=== PATIENT | female | born 1945 | race Caucasian/White ===

== ENCOUNTER 2017-07-31 10:30 | Outpatient (RCR) | payer MEDICARE, OTHER, SELFPAY ==
--- NOTE | 2017-06-19 11:47 | HP.PTEVAL_ITS ---
Patient's Visit Information CRYSTAL PALMER is a 72 year old F referred to Physical Therapy by FATMATA MAYS with a diagnosis of R knee OA, s/p medial uni.. Date of Evaluation: 06/19/17 Physical Therapist: Cruz Paul DPT, OC - Visit Plan Frequency: 3x /Week Duration: 4-6 Weeks Plan: 3x/week for 3-6 for. patellar mobs. R knee ROM. Gait progression. LE strength and progression. - Subjective Subjective: R partial medial KA two days ago. 06/17/17. Haven't slept good and is nauseous from hydrocodone. also on Zofran. Had R knee pain needing synvisc for a couple years. Pain was 9/10 after 2 aisles at [facility] and it started give out. Current pain is 8/10, not bad until anaesthesia wore off yesterday. Using ice at home. HEP: QS but hard to bend knee. SLR on a roll. 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 Dresses self with help from with FRANC hose and socks and shoes. Washes self and goes bathroom herself with increased time. Enjoys riding bikes and walking but could not due to knee pain. Enjoys reading and crocheting and gardening and mows on rider. Has steps with railing and has done them with L knee. - Pain R anterior medial knee Pain Intensity (Out of 10): 8 Pain Intensity Range: 0, 8 - Objective Pt ambulates slowly with diminished R knee flexion with wh walker safely. Transfers with UE I. R knee has incision medially and dry appropriately dressed. AROM R knee -3 to 80 AROM, limited by discomfort, passively and seated chair scoot to 85. Hip and ankle WFL and 4/5 strength B. Sensation WNL to gross light touch LE. HS and gastroc mod tightness, quad NT. patella R feels very stiff. 4 degree ext lag with SLR. - Goals Goal 1:: Sleep comfortably without waking 6 hours Goal Time Frame: 4-6 Weeks Goal 2:: 0-120 aROM to improve function and dressing Goal Time Frame: 4-6 Weeks Goal 3:: Walk without AD community without deviations Goal Time Frame: 4-6 Weeks Goal 4:: Steps reciprocal with one rail Goal Time Frame: 4-6 Weeks Goal 5:: I approp HEP Goal Time Frame: 4-6 Weeks - Rehabilitation Potential Physical Therapy Diagnosis: R partial knee rplaacement 06/17 Rehabilitation Potential: Fair - Anticipated Interventions Patient/Client Instruction: Educate patient on: Condition For the Purpose of:: To decrease pain, To improve muscle performance and motor function, To improve gait and locomotor functions Therapeutic Exercise to Include: Strength training, Flexibilty training, Gait and locomotor training, Passive ROM, Active ROM For the Purpose of:: To decrease pain, To increase ROM, To increase oxygenation perfusion, To improve ability to perform ADL's, To improve ability of physical actions for home/community/work/leisure Manual Therapy Techniques to Include: Scar massage, Mobilization, Soft tissue mobilization For the Purpose of:: To decrease pain, To increase ROM Cryotherapy (ice pack, ice massage): Yes For the Purpose of:: To decrease swelling/inflammation Thank you for the opportunity to evaluate your patient. For Medicare and Medicare HMO plans, please review the plan of care and approve it. It will need to be FAXED BACK to us at [phone] for Medicare purposes. Please let me know if there are questions or concerns regarding this plan of care. Physician Signature: Date:
--- NOTE | 2017-07-11 10:56 | HP.PTREVAL_ITS ---
GLORIA KING DEAN It has been my pleasure to treat CRYSTAL PALMER over the last 8 visits for R Partial TKR - 06/17/17. Please see the progress note below for an update on the physical therapy plan of care! Subjective: Went shopping [employer] yesterday and was tired and iced when got home. 4/10 ache afterward. Otherwise comfy at rest. Sleep is OK. Motion getting better. Doing HEP with bands of hips and HSC, PKF, HS in chair. Objective/Function: 0-98 aROM , patella sligthly stiff R vs L. Strength at 4/5 R knee flexiona dn extension without pain. Gait is sligth R antalgia/stiffness , steps are reciprocal ascending and weak on R apparent. Hurts R to step down onto L(ROM). OVERALL PROGRESSING NICELY AND APPROPRIATE FOR 2-3 MORE WEEKS TO INCREASE rom FOR STEPS AND STRENGTH FOR GAIT. Plan Plan: 2-3x/week for 3 weeks for. patellar mobs and ensure R knee flexion improving. Progress strength to HEP. Steps. Goals Goal 1:: Sleep comfortably without waking 6 hours Goal Time Frame: 4-6 Weeks Goal Progress: Goal Met Goal 2:: 0-120 aROM to improve function and dressing Goal Time Frame: 4-6 Weeks Goal Progress: Progressing Goal 3:: Walk without AD community without deviations Goal Time Frame: 4-6 Weeks Goal Progress: Progressing Goal 4:: Steps reciprocal with one rail Goal Time Frame: 4-6 Weeks Goal Progress: Progressing Goal 5:: I approp HEP Goal Time Frame: 4-6 Weeks Goal Progress: Progressing Anticipated Interventions Patient/Client Instruction: Educate patient on: Condition For the Purpose of:: To decrease pain, To improve muscle performance and motor function, To improve gait and locomotor functions Therapeutic Exercise to Include: Strength training, Flexibilty training, Gait and locomotor training, Passive ROM, Active ROM For the Purpose of:: To decrease pain, To increase ROM, To increase oxygenation perfusion, To improve ability to perform ADL's, To improve ability of physical actions for home/community/work/leisure Manual Therapy Techniques to Include: Scar massage, Mobilization, Soft tissue mobilization For the Purpose of:: To decrease pain, To increase ROM Cryotherapy (ice pack, ice massage): Yes For the Purpose of:: To decrease swelling/inflammation Please do not hesitate to contact me at [phone] by phone or Fax: if you have questions or concerns regarding this new plan of care! Sincerely, Cruz Paul DPT, OC
--- NOTE | 2017-07-31 10:56 | HP.PTREVAL_ITS ---
FATMATA CASTRO, It has been my pleasure to treat CRYSTAL PALMER over the last 15 visits for R Partial TKR - 06/17/17. Please see the progress note below for an update on the physical therapy plan of care! Subjective: Hurts all the time medial R knee worse in morning. Still on hyrdocodone adn tramadol 2 per day. Pain 5/10 in am until moves 3/10 then. NO pain at rest currently. Tried not taking them last week and pain was worse. Sleep is good. Steps are good going up but needs rail to come down. Normal activities including driving, can't get down on floors and mop which doctor told her not too. Hobbies include riding bikes and can't even do stationary nike yet. walked the other night 1/2 mile and felt OK. Still feels weak overall. Objective/Function: 0-104 AROM but with OP can get to 111 easily, pt not pushing herself very far with flexion. Steps reciprocal today without a rail, slight pain descending with R. Walks well without deviations or pain today. Cues needed for bike set up for full revolutions but excited that she could do it. OVERFALL DOING GREAT. PAIN IS A LITTLE HIGHER THAN I WOULD LIKE IT WELL MEDS BUT SHE WILL DISCUSS THAT WITH DOCTOR. Plan Plan: WILL CONTINUE VIA HEP AND F/U IN TWO WEEKS UNLESS DOCTOR SAYS OTHERWISE. Check ROM, LEFS, bike, steps in two weeks and likely D/C Goals Goal 1:: Sleep comfortably without waking 6 hours Goal Time Frame: 4-6 Weeks Goal Progress: Goal Met Goal 2:: 0-120 aROM to improve function and dressing Goal Time Frame: 4-6 Weeks Goal Progress: Progressing Goal 3:: Walk without AD community without deviations Goal Time Frame: 4-6 Weeks Goal Progress: Goal Met Goal 4:: Steps reciprocal with one rail Goal Time Frame: 4-6 Weeks Goal Progress: Goal Met Goal 5:: I approp HEP Goal Time Frame: 4-6 Weeks Goal Progress: Goal Met Goal 6:: stationary bike at home and continue progress confidently Goal Time Frame: 2 Weeks Goal Progress: NEW GOAL Anticipated Interventions Patient/Client Instruction: Educate patient on: Condition For the Purpose of:: To decrease pain, To improve muscle performance and motor function, To improve gait and locomotor functions Therapeutic Exercise to Include: Strength training, Flexibilty training, Gait and locomotor training, Passive ROM, Active ROM For the Purpose of:: To decrease pain, To increase ROM, To increase oxygenation perfusion, To improve ability to perform ADL's, To improve ability of physical actions for home/community/work/leisure Manual Therapy Techniques to Include: Scar massage, Mobilization, Soft tissue mobilization For the Purpose of:: To decrease pain, To increase ROM Cryotherapy (ice pack, ice massage): Yes For the Purpose of:: To decrease swelling/inflammation Please do not hesitate to contact me at [phone] by phone or Fax: if you have questions or concerns regarding this new plan of care! Sincerely, Cruz Paul, AIDET, OC
--- NOTE | 2017-09-29 15:26 | HP.PT.NRP ---
HP - Discharge Summary (1) - Patient Information CRYSTAL PALMER was seen in my office for initial evaluation on 06/19/17. The following Plan of Care was established for this patient: Initial Frequency: 3x /Week Initial Duration: 4-6 Weeks - Anticipated Interventions Patient/Client Instruction: Educate patient on: Condition For the Purpose of:: To decrease pain, To improve muscle performance and motor function, To improve gait and locomotor functions Therapeutic Exercise to Include: Strength training, Flexibilty training, Gait and locomotor training, Passive ROM, Active ROM For the Purpose of:: To decrease pain, To increase ROM, To increase oxygenation perfusion, To improve ability to perform ADL's, To improve ability of physical actions for home/community/work/leisure Manual Therapy Techniques to Include: Scar massage, Mobilization, Soft tissue mobilization For the Purpose of:: To decrease pain, To increase ROM Cryotherapy (ice pack, ice massage): Yes For the Purpose of:: To decrease swelling/inflammation This patient was last seen in our office 07/31/17. Pertinent comments regarding their Physical therapy will appear below: Pt seen 15 visits of her plans of care. She cancelled her last visit and neglected to reschedule. at this point, it has been nearly two months and I will discontinue her due to nonattendance. At this point I will be discontinuing this patient from physical therapy. I would be happy to see this patient again in the future if found appropriate by the physician. Thank you! Cruz Paul, DPT, OC
== END 2017-07-31 19:00 | disposition home or self-care (01) ==
LOC: PT 10:30
DX: Z96.651 Presence of right artificial knee joint (principal)
CPT/HCPCS: 97110; 97116; 97140; 97162; 97530

== ENCOUNTER → 2017-10-14 20:00 | Outpatient (CLI) | payer MEDICARE, OTHER, SELFPAY | PROVIDERS: Family Provider Family Medicine; PCP Family Medicine; Visit Provider Psychiatry & Neurology Neurology | DX: G47.33 Obstructive sleep apnea (adult) (pediatric) (principal) | CPT/HCPCS: 95811 ==

== ENCOUNTER 2019-02-24 12:30 | Outpatient (RCR) | payer MEDICARE, OTHER, SELFPAY ==
--- NOTE | 2019-01-01 12:29 | HP.PTEVAL ---
Patient's Visit Information CRYSTAL PALMER is a 73 year old F referred to Physical Therapy by FATMATA CASTRO with a diagnosis of S/P LEFT PARTIAL KNEE REPLACEMENT 12/29/18. Date of Evaluation: 01/01/19 Physical Therapist: Annmarie Mathis, PT, Cert MDT - Visit Plan Frequency: 3x /Week Duration: 4-6 Weeks Plan: LEFT KNEE REHAB PER TKR PROTOCOL TO HELP MEET THE SET GOALS. PATIENT IS AGREEABLE. - Subjective Findings: Work/Leisure: RETIRED. Disability: NO. Present symptoms: LEFT KNEE PAIN. Present since: CHRONIC. Pain Scale: WORST 22/10, LEAST 5/10. Currently: 10/14. Commenced as a result of: ARTHRITIS. Symptoms at onset: LEFT KNEE PAIN. Worse: TRYING TO BEND IT, TOO MUCH WALKING, TOO MUCH STANDING. Better: LYING DOWN, SITTING AND ICE. Disturbed sleep: YES. Previous history/Previous treatment: INJECTIONS. Gait: USING FWW AT ALL TIMES. TIME AND DISTANCE LIMITED. TRYING TO GET UP AND WALK EVERY HOUR. Difficulty initiating urinatin: NO. Accidents: NO. Unexplained weight loss: NO. Imaging: PATIENT DOESN'T REMEMBER. PMH: BACK SURGERY FOR PATRICIA AND SCREW PLACEMENT IN LOW BACK 2016 - FUSION, HTN, HYPOTHYROIDISM, HIGH CHOLESTEROL, GABAPENTIN FOR RLS, SLEEP APNEA. RTKR JUNE 2017 - Objective Sitting/Standing Posture: POOR. Lordosis: REDUCED. Active Correction of posture: NE. Other Observations: INDEP GAIT INTO PT WITH FWW WITH RECIPRICAL PATTERN BUT MILD LIMP ON LLE. GOOD BALANCE WITH WALKER. DECREASED CADANCE. MILD INCREASED TRUNK FLEXION. Motor deficit: RIGHT LE STRENGTH IS 4-5/5 WITH MMT'ING. LLE: HIP 3+/5, KNEE EXT 2/5, KNEE FLEX 2/5, ANKLE 5/5. Sensory deficit: CHASIDY LE LIGHT TOUCH SENSATION IS INTACT AND SYMMETRICAL. PATIENT EVEN DENIES DECREASED LIGHT TOUCH AROUND LEFT KNEE INCISION. ROM deficit: IN SUPINE WITH A HEEL SLIDE: RIGHT KNEE FULL EXT TO 120 DEG FLEX. LEFT KNEE -27 DEG EXTENSION TO 50 DEG FLEX (54 DEG FLEX AFTER HEP REVIEW). Reflexes: NT. Core strength: POOR. Palpation: ABLE TO SEE SMALL INCISION BANDAGE THROUGH FRANC HOSE AND IT HAS JUST A SMALL DOT OF DRAINAGE ON IT. 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 THERE IS MODERATE EDEMA LOCALIZED TO THE LEFT KNEE. - Goals Goal 1:: INDEP AND SAFE GAIT WITH LEAST ASSISTIVE DEVICE Goal Time Frame: 4-6 Weeks Goal 2:: INCRASE FUNCTIONAL ROM OF LLE TO EASE ADL'S Goal Time Frame: 4-6 Weeks Goal 3:: INCRASE FUNCTIONAL STRENGTH OF LLE TO EASE ADL'S Goal Time Frame: 4-6 Weeks Goal 4:: INDEP HEP FOR CONTINUED IMPROVEMENT ONCE FORMAL PHYSICAL THERPAY CONCLUDES. Goal Time Frame: 4-6 Weeks - Rehabilitation Potential Rehabilitation Potential: Fair - Anticipated Interventions Patient/Client Instruction: Educate patient on: Condition, Plan of Care, Risk Factors, Benefits of Fitness Program For the Purpose of:: To improve self management Therapeutic Exercise to Include: Strength training, Balance training, Flexibilty training, Gait and locomotor training, Active ROM, Dynamic Lumbar Stabilization For the Purpose of:: To decrease pain, To increase ROM, To improve muscle performance and motor function, To improve performance and independence with ADL's, To improve ability of physical actions for home/community/work/leisure, To improve gait and locomotor functions Cryotherapy (ice pack, ice massage): Yes Thermo therapy (hot pack): Yes For the Purpose of:: To decrease pain, To decrease swelling/inflammation, To increase ROM Thank you for the opportunity to evaluate your patient. For Medicare and Medicare HMO plans, please review the plan of care and approve it. It will need to be FAXED BACK to us at [phone] for Medicare purposes. For Medicare only, by signing this I certify the plan of care. Please let me know if there are questions or concerns regarding this plan of care. Physician Signature: Date:
--- NOTE | 2019-01-22 11:09 | HP.PTREVAL ---
FATMATA CASTRO, It has been my pleasure to treat CRYSTAL PALMER over the last 8 visits for S/P LEFT PARTIAL KNEE REPLACEMENT 12/29/18. Please see the progress note below for an update on the physical therapy plan of care! Subjective: PATIENT ARRIVED FEELING NAUSEATED. DENIES PROBLEMS WITH HER INCISION. PATIENT REPORTS HER KNEE IS A LITTLE MORE SORE TODAY BECAUSE SHE CLEANED THE HOUSE FOR THE FIRST TIME. NO LONGER USING WALKER. USUALLY WALKS WITHOUT ANY AD BUT USING CANE TODAY FOR DISTANCE. PATIENT REPORTS SHE IS ALMOST BACK TO NORMAL EXCEPT FOR NOT BEING ABLE TO BEND IT MORE. STATES SHE IS COOKING, CLEANING, AND DOING LAUNDRY. ALBE TO GET HER SHOES ON BY HERSELF TODAY. FOLLOW UP PENDING WITH SURGEON 02/08/19. PATIENT REPORTS SHE ONLY TAKES PAIN PILLS BEFORE PT SESSIONS NOW. NO BACK SPASMS TODAY. REQUESTING NOT TO DO MUCH TODAY BECAUSE FEELING SICK. Objective/Function: PATIENT IS MAKIING GOOD PROGRESS TOWARD ALL PT GOALS BUT LEFT KNEE FLEXION ROM IS IMPROVING VERY SLOWLY. UPON EXAM TODAY: INDEP GAIT INTO PT WITH STRAIGHT CANE AND MILD LIMP ON LLE. GOOD BALANCE WITH AND WITHOUT CANE. DECREASED CADANCE. MILD INCREASED TRUNK FLEXION. Motor deficit: RIGHT LE STRENGTH IS 4-5/5 WITH MMT'ING. LLE: HIP 4-/5, KNEE EXT 3-/5, KNEE FLEX 2/5, ANKLE 5/5. Sensory deficit: CHASIDY LE LIGHT TOUCH SENSATION IS INTACT AND SYMMETRICAL. ROM deficit: IN SUPINE WITH A HEEL SLIDE: LEFT KNEE -2 DEG EXTENSION TO 75 DEG FLEX. LEFT KNEE PASSIVE FLEXION ROM SITTING EOB TO 90 DEG TODAY. Core strength: POOR. 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 THERE IS MODERATE EDEMA LOCALIZED TO THE LEFT KNEE. INCISION LOOKS GOOD TODAY WITHOUT ANY SIGNS OF INFECTION. Plan Plan: CONT PT 3 TIMES A WEEK X 3 WEEKS FOR LEFT KNEE REHAB PER TKR PTOTOCOL WITH FOCUS ON INCREASING LEFT KNEE FLEXION ROM AND STRENGTH. Goals Goal 1:: INDEP AND SAFE GAIT WITH LEAST ASSISTIVE DEVICE Goal Time Frame: 4-6 Weeks Goal 2:: INCRASE FUNCTIONAL ROM OF LLE TO EASE ADL'S Goal Time Frame: 4-6 Weeks Goal 3:: INCRASE FUNCTIONAL STRENGTH OF LLE TO EASE ADL'S Goal Time Frame: 4-6 Weeks Goal 4:: INDEP HEP FOR CONTINUED IMPROVEMENT ONCE FORMAL PHYSICAL THERPAY CONCLUDES. Goal Time Frame: 4-6 Weeks Anticipated Interventions Patient/Client Instruction: Educate patient on: Condition, Plan of Care, Risk Factors, Benefits of Fitness Program For the Purpose of:: To improve self management Therapeutic Exercise to Include: Strength training, Balance training, Flexibilty training, Gait and locomotor training, Active ROM, Dynamic Lumbar Stabilization For the Purpose of:: To decrease pain, To increase ROM, To improve muscle performance and motor function, To improve performance and independence with ADL's, To improve ability of physical actions for home/community/work/leisure, To improve gait and locomotor functions Cryotherapy (ice pack, ice massage): Yes Thermo therapy (hot pack): Yes For the Purpose of:: To decrease pain, To decrease swelling/inflammation, To increase ROM Please do not hesitate to contact me at [phone] by phone or if you have questions or concerns regarding this new plan of care! Sincerely, Annmarie Mathis, PT, Cert MDT
--- NOTE | 2019-02-24 13:49 | HP.PTDCSUM ---
HP - PT D/C Summary It has been my pleasure to treat CRYSTAL PALMER under orders from FATMATA CASTRO, for the diagnosis of S/P LEFT PARTIAL KNEE REPLACEMENT 12/29/18 for a total of 15 visit(s). Discharge Date: Please see the following information for a summary of their discharge status. - Subjective Subjective: PATIENT REPORTS THAT HER SURGEON DOES NOT RECOMMEND MANIPULATION OF HER KNEE AT THIS POINT. SHE STATES SHE CAN DO EVERYTHING SHE NEEDS TO DO (DRIVE, COOK, CLEAN, DRESS HERSELF) WITH HER KNEE THE WAY IT IS RIGHT NOW. SHE REPORTS THE SURGEON FEELS THAT SHE COULD IMPROVE OVER THE NEXT 6 MONTHS TO YEAR. PATIENT REPORTS SHE HASN'T HAD TO TAKE A PAIN PILL FOR ABOUT 2 WEEKS. INTERMITTENT LEFT KNEE ZAPS IN SITTING. PATIENT REPORTS THE ONLY PROBLEM SHE IS HAVING IS BENDING IT. SHE REPORTS THAT SHE THINKS SHE HAS PROBABLY BEEN UP ON IT TOO MUCH WITH COOKING, CLEANING AND SHOPPING AND NOT STRETCHING ENOUGH. SHE IS HOPEFUL THAT SHE WILL BE ABLE TO FOCUS ON REHAB MORE IN [place]. - Pain LEFT KNEE Pain Intensity (Out of 10): 4 L hip and LB Pain Intensity (Out of 10): 0 - Overall Improvement % Improvement: 95 - Objective Objective/Function: THIS PATIENT DEMONSTRATES INDEP AND SAFE GAIT INTO PT TODAY WITHOUT AD BUT DECREASED CADANCE AND LIMP ON LLE. HER LEFT KNEE EXT ROM IS GOOD. HER LLE STRENGTH IS IMPROVING BUT HER LEFT KNEE FLEXION IS NOT. SURGEON IS AWARE. PATIENT IS INDEP WITH POOL AND LAND HOME EX PROGRAMS AND PLANS TO CONTINUE REHAB IN [place] AT THIS POINT. UPON EXAM TODAY: Motor deficit: RIGHT LE STRENGTH IS 5/5 WITH MMT'ING. LLE: HIP 4/5, KNEE EXT 4-/5, KNEE FLEX 3-/5, ANKLE 5/5. Sensory deficit: CHASIDY LE LIGHT TOUCH SENSATION IS INTACT AND SYMMETRICAL. ROM deficit: IN SUPINE WITH A HEEL SLIDE: LEFT KNEE FULL EXTENSION TO 86 DEG FLEX. LEFT KNEE PASSIVE FLEXION ROM SITTING EOB TO 86 DEG FLEX WELL TODAY. FURTHER PROM IS PAIN LIMITED. OTHER: THERE IS MODERATE EDEMA LOCALIZED TO THE LEFT KNEE. LEFS SCORE HAS IMPROVED FROM 15 TO 53 DURING THIS EPISODE OF CARE. - Goals Goal 1:: INDEP AND SAFE GAIT WITH LEAST ASSISTIVE DEVICE Goal Progress: Goal Met Goal 2:: INCRASE FUNCTIONAL ROM OF LLE TO EASE ADL'S Goal Progress: Not Progressing Goal 3:: INCRASE FUNCTIONAL STRENGTH OF LLE TO EASE ADL'S Goal Progress: Progressing Goal 4:: INDEP HEP FOR CONTINUED IMPROVEMENT ONCE FORMAL PHYSICAL THERPAY CONCLUDES. Goal Progress: Not Progressing - Plan Plan: D/C. PATIENT IS LEAVING FOR [place] AND HAS AN ORDER TO CONTINUE REHAB THERE. - D/C Information If there are questions or concerns regarding this patient's physical therapy, please feel free to call me at [phone]. Thank you for the referral of this patient. Sincerely, Annmarie Mathis, PT, Cert MDT
== END 2019-02-24 19:00 | disposition home or self-care (01) ==
LOC: PT 12:30
PROVIDERS: Family Provider Family Medicine; PCP Family Medicine
DX: M17.12 Unilateral primary osteoarthritis, left knee (principal)
CPT/HCPCS: 97110; 97140; 97162; 97530

== ENCOUNTER 2021-11-02 09:00 | Outpatient (RCR) | payer MEDICARE, OTHER, SELFPAY ==
--- NOTE | 2021-09-26 09:04 | HP.PTEVAL_ITS ---
Patient's Visit Information CRYSTAL PALMER is a 76 year old F referred to Physical Therapy by FATMATA CASTRO with a diagnosis of L HIP PAIN AND TROCHANTERIC BURSITIS. Date of Evaluation: 09/26/21 Physical Therapist: Annmarie Mathis, PT, Cert MDT - Visit Plan Frequency: 2-3x /Week Duration: 4-6 Weeks Plan: L HIP US X 6-8 OVER GREATER TROCH REGION. POSTURE CORRECTION/STRENGTHENING, INSTRUCTION IN APPROPRIATE BODY MECHANICS AND ACTIVITY MODIFICATIONS. DLS STARTING WITH A NEUTRAL SPINE PROGRESSING ROM TOLERATED. CHASIDY LE ROM, STRETCHING AND STRENGTHENING IN PAINFREE ROM AND INTENSITY. HEP INSTRUCTION. - Subjective Work/Leisure: RETIRED. RIDES [employer]. Present symptoms: CENTRAL LBP. LEFT BUTTOCK PAIN SITTING AND LEFT GROIN, THIGH AND LATERAL HIP PAIN WALKING. PATIENT DENIES CHASIDY LE NUMBNESS AND TINGLING. Present since: ABOUT 6 WKS AGO. Pain Scale: WORST 8/10, LEAST 0/10. Currently: 0/10. Commenced as a result of: NO APPARENT REASON. Symptoms at onset: L GROIN. Worse: WALKING, PROLONGED SITTING, SITTING TO WEED. Better: ICE. Disturbed sleep: NO. Previous history/Previous treatment: ABOUT 8 YEARS AGO REC'D A CORTISONE INJECTION FROM DR. RODRIGUEZ IN L HIP BUT THAT WAS A DIFFERENT KIND OF PAIN. Treatment this episode: NONE. Coughing/sneezing/straining: NEGATIVE. Gait: IT FEELS LIKE IT CATCHES AND IT HURTS. IT SLOWS HER DOWN. NO AD. NO FALLS. TIME AND DISTANCE LIMITED DUE TO PAIN. Bowel or Bladder Dysfunction: NO. Accidents: NO. Unexplained weight loss: NO. Imaging: RECENT L HIP X-RAY AT [facility] AND PATIENT REPORTS IT WAS NORMAL. PMH/Recent major surgery: CHASIDY PARTIAL KNEE REPLACEMENTS. LUMBAR FUSION ABOUT [address] RODRIGUEZ[address] R CTR, R FOOT SX. HYPOTHYROIDIM, HTN, RLS. HIGH CHOLESTEROL. FIBROMYALGIA. OTHER: PATIENT REPORTS LAST NIGHT WAS THE WORST IT HAS BEEN. REPORTS SHE HAS TRIED ALEVE BUT IT HASN'T HELPED. REPORTS CORTISONE SHOT WAS DISCUSSED BUT PT RECOMMENDED FIRTST. IT WAS AWFUL LAST NIGHT. - Objective Sitting/Standing Posture: POOR. FH. RS'S. Active Correction of posture: WORSE. Other Observations: SLOW INDEP ANTALGIC GAIT INTO PT WITHOUT ANY AD'S OR LOB. Sensory deficit: CHASIDY LE LIGHT TOUCH SENSATION IS GROSSLY INTACT AND SYMMETRICAL. ROM deficit: CHASIDY LE'S WFL. CHASIDY HIP IR AND ER TESTING DID NOT PROVOKE PAIN. Motor deficit: CHASIDY LE'S 5/5 WITH MMT'ING EXCEPT RIGHT HIP 4/5 AND L HIP 4-/5 AND HIP ABD TESTING PROVOKES PAIN. HIP IR AND ER TESTING SHOWS WEAKNESS BUT DOES NOT PROVOKE PAIN. CLICKING FELT IN L KNEE AND PATIENT REPORTS THAT IS NOT NEW. SHE REPORTS HER LEFT KNEE NEVER GOT GOOD HER RIGHT KNEE AFTER SX'S. Dural Signs: NEGATIVE CHASIDY LE'S. Lumbar mvmt loss: flex - NIL. ext - MOD. R SG -MOD. L SG - MOD. Core strength: POOR. Palpation: TENDERNESS WITH PALPATION IN THE L GREATER TROCH REGION AND ALONG IT BAND TO LATERAL KNEE. TREATMENT: NEUROMUSCULAR REEDUCATION - RETRAINING OF MVMT AND POSTURE FOR SITTING, LYING AND STANDING ACTIVITIES. - Balance/Special Test Scores Lower Extremity Functional Score: 26 TUG Test Time Seconds: 11.36 30 Second Chair Rise Test Seconds: 9 - Goals Goal 1:: DECREASE C/O LOW BACK AND LEFT LE PAIN Goal Time Frame: 4-6 Weeks Goal 2:: IMPROVE STANDING, WALKING, SITTING, BENDING, ADL, HOUSEWORK AND YARDWORK FUNCTION Goal Time Frame: 4-6 Weeks Goal 3:: INSTRUCT IN PROPHYLAXIS Goal Time Frame: 4-6 Weeks - Anticipated Interventions Patient/Client Instruction: Educate patient on: Condition, Plan of Care, Risk Factors For the Purpose of:: To improve self management Therapeutic Exercise to Include: Strength training, Body mechanics, Postural training, Gait and locomotor training, Neuromotor development, In an aquatic setting, Dynamic Lumbar Stabilization Comment: CONSIDER AQUATIC THERAPY IF NOT IMPROVING ON LAND. For the Purpose of:: To decrease pain, To improve muscle performance and motor function, To improve ability to perform ADL's, To increase tolerance to activity/condition/position, To improve ability of physical actions for home/community/work/leisure, To improve gait and locomotor functions Cryotherapy (ice pack, ice massage): Yes Thermo therapy (hot pack): Yes Ultrasound (thermal/non thermal): Yes For the Purpose of:: To decrease pain, To improve nutrient delivery to tissue Thank you for the opportunity to evaluate your patient. For Medicare and Medicare HMO plans, please review the plan of care and approve it. It will need to be FAXED BACK to us at [phone] for Medicare purposes. For Medicare only, by signing this I certify the plan of care. Please let me know if there are questions or concerns regarding this plan of care. Physician Signature: Date:
--- NOTE | 2021-10-22 12:30 | HP.PTREVAL_ITS ---
FATMATA CASTRO, It has been my pleasure to treat CRYSTAL PALMER over the last 9 visits for L HIP PAIN AND TROCHANTERIC BURSITIS. Please see the progress note below for an update on the physical therapy plan of care! Subjective: PATIENT REPORTS SOMETIMES IT IS GOOD AND OTHER TIMES SHE CAN STILL FEEL IT. STATES SHE FEELS THE US HAS REALLY HELPED. DOING HEP ONCE IN THE MORNING AND ONCE AT NIGHT. I CAN SIT IN THE CAR NOW WITHOUT HAVING TO WIGGLE AROUND TO GET PRESSURE OFF MY BUTT. PATIENT REPORTS SHE DOES NOT FEEL SHE NEEDS AN INJECTION AND SHE DOESN'T WANT ONE. Objective/Function: PATIENT WAS SEEN TODAY FOR RE-ASSESSMENT OF PROGRESS TOWARD THE SET PT GOALS AND THE NEED FOR FURTHER PHYSICAL THERAPY VS READINESS FOR DI SCHARGE. PATIENT IS MAKING GREAT PROGESS TOWARD ALL PT GOALS. SHE IS A GOOD CANDIDATE TO CONTINUE THERPAY BASED ON PROGRESS MADE AND ROOM FOR FUTHER IMPROVEMENT. PATIENT IS AGREEABLE. SHE IS BECOMING INDEP WITH A HEP BUT NEEDS TO LEARN/TRY MORE EX'S. UPON EXAM TODAY HER L HIP STRENGTH IS 4+/5 WITH MMT'ING AND NO PAIN WITH TESTING. SHE CONTINUES TO HAVE POOR CORE STRENGTH BUT IS LEARNING TO ACTIVATE HER CORE BETTER. INSTRUCTED IN TWO NEW HOME EX'S TODAY AND WRITTEN INSTRUCTIONS PROVIDED. CHASIDY CLAMS AND REVERSE CLAMS. SHE TOLERATED THESE WELL. Plan Plan: CONT PT PER POC WITH US NEEDED. L HIP US X 6-8 OVER GREATER TROCH REGION. POSTURE CORRECTION/STRENGTHENING, INSTRUCTION IN APPROPRIATE BODY MECHANICS AND ACTIVITY MODIFICATIONS. DLS STARTING WITH A NEUTRAL SPINE PROGRESSING ROM TOLERATED. CHASIDY LE ROM, STRETCHING AND STRENGTHENING IN PAINFREE ROM AND INTENSITY. HEP INSTRUCTION. Balance/Gait/Functional tests - Balance/Special Test Scores Lower Extremity Functional Score: 57 TUG Test Time Seconds: 11.36 Tug Test: <20 sec.=mostly independent 30 Second Chair Rise Test Seconds: 9 Goals Goal 1:: DECREASE C/O LOW BACK AND LEFT LE PAIN Goal Time Frame: 4-6 Weeks Goal Progress: Progressing Goal 2:: IMPROVE STANDING, WALKING, SITTING, BENDING, ADL, HOUSEWORK AND YARDWORK FUNCTION Goal Time Frame: 4-6 Weeks Goal Progress: Progressing Goal 3:: INSTRUCT IN PROPHYLAXIS Goal Time Frame: 4-6 Weeks Goal Progress: Progressing Anticipated Interventions Patient/Client Instruction: Educate patient on: Condition, Plan of Care, Risk Factors For the Purpose of:: To improve self management Therapeutic Exercise to Include: Strength training, Body mechanics, Postural training, Gait and locomotor training, Neuromotor development, In an aquatic setting, Dynamic Lumbar Stabilization Comment: CONSIDER AQUATIC THERAPY IF NOT IMPROVING ON LAND. For the Purpose of:: To decrease pain, To improve muscle performance and motor function, To improve ability to perform ADL's, To increase tolerance to activity/condition/position, To improve ability of physical actions for home/community/work/leisure, To improve gait and locomotor functions Cryotherapy (ice pack, ice massage): Yes Thermo therapy (hot pack): Yes Ultrasound (thermal/non thermal): Yes For the Purpose of:: To decrease pain, To improve nutrient delivery to tissue Please do not hesitate to contact me at [phone] by phone or if you have questions or concerns regarding this new plan of care! Sincerely, Annmarie Mathis, PT, Cert MDT
--- NOTE | 2021-11-02 09:28 | HP.PTDCSUM ---
It has been my pleasure to treat CRYSTAL PALMER referred by FATMATA CASTRO, with the diagnosis of L HIP PAIN AND TROCHANTERIC BURSITIS for a total of 11 visit(s). Discharge Date: Please see the following information for a summary of their discharge status. Subjective: PATIENT REPORTS SHE IS DOING GOOD. NO GROIN PAIN. ACTIVE AND DOING HEP. I EVEN HOPPED WITH MY GRANDKIDS. HAS A FEW QUESTIONS ABOUT NEW EX'S FROM LAST VISIT. LEFT THIGH Pain Intensity (Out of 10): 0 L GROIN Pain Intensity (Out of 10): 3 % Improvement: 95 Objective/Function: PATIENT WAS SEEN TODAY FOR RE-ASSESSMENT OF PROGRESS TOWARD THE SET PT GOALS AND THE NEED FOR FURTHER PHYSICAL THERAPY VS READINESS FOR DISCHARGE. ALL GOALS. MET. PATIENT IS INDEP WITH HEP. REVIEWED NEW BAND EX'S AND ADDED MULTIFIDUS PUSH OUTS CHASIDY TODAY WITH GOOD TOLERANCE AND TECHNIQUE. WRITTEN HEP PROVIDED. PATIENT IS APPROPRIATE FOR DISCHARGE AND AGREEABLE. UPON EXAM TODAY: Motor deficit: CHASIDY LE'S 5/5 WITH MMT'ING. Lumbar mvmt loss: flex - NIL. ext - MOD. R SG -MOD. L SG - MOD. PATIENT DENIES PAIN WITH ALL TESTING TODAY. Goal 1:: DECREASE C/O LOW BACK AND LEFT LE PAIN Goal Progress: Goal Met Goal 2:: IMPROVE STANDING, WALKING, SITTING, BENDING, ADL, HOUSEWORK AND YARDWORK FUNCTION Goal Progress: Goal Met Goal 3:: INSTRUCT IN PROPHYLAXIS Goal Progress: Goal Met Plan: D/C TO HEP. PATIENT AGREEABLE. If there are questions or concerns regarding this patient's physical therapy, please feel free to call me at [phone]. Thank you for the referral of this patient. Sincerely, Annmarie Mathis, PT, Cert MDT Balance/Gait/Functional tests - Balance/Special Test Scores Lower Extremity Functional Score: 70 TUG Test Time Seconds: 9.29 Tug Test: <10 sec.=free mobile 30 Second Chair Rise Test Seconds: 12
== END 2021-11-02 19:00 | disposition home or self-care (01) ==
LOC: PT 09:00
PROVIDERS: PCP Family Medicine
DX: M25.552 Pain in left hip (principal); M70.62 Trochanteric bursitis, left hip
CPT/HCPCS: 97035; 97110; 97112; 97162; 97164; 97530

== ENCOUNTER 2023-07-16 15:00 | Outpatient (RCR) | payer MEDICARE, OTHER, SELFPAY ==
--- NOTE | 2023-06-02 16:05 | HP.PTEVAL ---
Patient's Visit Information Visit Information Visit Information: CRYSTAL PALMER is a 78 year old F referred to Physical Therapy by JUAN LUIS GARCIA with a diagnosis of BICIPITAL TENDINITIS L SHLD. Date of Evaluation: 06/02/23 Physical Therapist: Annmarie Mathis PT, Cert MDT Visit Plan Frequency: 2x /Week Duration: 2-4 Weeks Plan: US AT 1.3 W/CM2 100% X 8 MIN TO L SHLD. MH AND CP NEEDED. L SHLD STRENGTHENING. Subjective Subjective: PATIENT REPORTS HE LEFT JOE HAS BEEN HURTING FOR ABOUT [address] GARCIA OFFERED TO GIVE HER A SHOT BUT IT DOESN'T HURT ALL THE TIME. SOMETIMES WHEN SHE MOVES IT IT POPS. SHE STATES SHE HAD AN X-RAY OF IT BUT NOT AN MRI. SHE STATES HE DOESN'T THINK THERE ARE ANY TEARS. SHE REPORTS A HISTORY OF R SHLD UNREPAIRED RCT TREATED WITH INJECTION AND SHE DOESN'T WANT TO HAVE SURGERY. Pain Scale: Worst - 5/10 - WHEN IT POPS. Least - 0/10 - MOST OF THE TIME Currently: 0/10 Commenced as a result of: TAKING CARE OF ILL FOR ABOUT 2 YEARS. Worse: VACUUMING. JUST MOVING ARM IN SITTING SOMETIMES. CLEANING THE SHOWER. R HAND DOMINANT SO DOESN'T USE THE LUE A LOT. Better: ICE Disturbed sleep: NO Previous history/Previous treatment: UNREMARKABLE This episode: NONE Imaging: L SHLD X-RAY - SUBLUXATION FROM WEAKNESS OF BICEP PER PATIENT DESCRIPTION PMH/Recent major surgery: R ROTATOR CUFF TEAR. NIDDM. CHASIDY TKR'S. LUMBAR SX. HTN. HIGH CHOLESTEROL. HYPOTHYROIDISM. RLS. Objective Objective: Sitting Posture/Standing Posture: POOR. FH. RSH'S. L SHLD LEVEL LOWER THAN RIGHT. ABLE TO PARTIALLY CORRECT POSTURE BUT NOT MAINTAIN. Other Observations: INDEP GAIT AND TRANSFERS. NO AD'S OR LOB. Sensory deficit: CHASIDY UE LIGHT TOUCH SENSATOIN GROSSLY INTACT AND SYMMETRICAL. DENIES NUMBNESS AND TINGLING CHASIDY UE'S. ROM deficit: L SHLD FULL PASSIVE AND ACTIVE ROM WITH MILD ERP INTO FULL L SHLD IR. R SHLD NT AT PATIENT REQUEST STATING SHE IS JUST HERE FOR HER L SHLD AND DOES NOT WANT TREATMENT ON THE R. Motor deficit: R HAND DOMINANT. CHASIDY GRIB 20 LBS. L SHLD FLEX 4-/5, ABD 4-/5, IR 4/5, ER 4-/5, ELBOW FLEX 4/5, EXT 5/5. Cervical Mvmt Loss: Flex: NIL Pro: NIL Ext: MOD Ret: MERISSA RSB: MOD LSB: MOD R Rot: MIN L Rot: MIN PATIENT DENIES ANY INCREASED NECK OR SHLD PAIN WITH CERVICAL ROM TESTING BUT REPORTS NECK STIFFNESS. Postural strength: POOR Palpation: TENDERNESS L ANTERIOR SHLD IN BICIPITAL GROOVE. Balance/Special Test Scores Quick DASH Score: 22.7250 Goals Goal 1:: DECREASE C/O L SHLD CATCHING/POPPING AND PAIN BY AT LEAST 80% Goal Time Frame: 2-4 Weeks Goal 2:: INCREASE L UE STRENGTH BY AT LEAST 1/2 MUSCLE GRADE OF ALL INVOLVED MUSCULATURE Goal Time Frame: 2-4 Weeks Goal 3:: IMPROVE QUICK DASH SCORE BY AT LEAST 5 POINTS Goal Time Frame: 2-4 Weeks Goal 4:: INDEP HEP Goal Time Frame: 2-4 Weeks Rehabilitation Potential Physical Therapy Diagnosis: TENDERNESS L BICIPITAL TENDON IN BICIPITAL GROOVE. L SHLD AND ELBOW WEAKNESS. Rehabilitation Potential: Good Anticipated Interventions Patient/Client Instruction: Educate patient on: Condition, Plan of Care and Risk Factors For the Purpose of:: To improve self management Therapeutic Exercise to Include: Strength training, Postural training, Neuromotor development, Passive ROM, Active ROM and Scapular Strength/Stabilization For the Purpose of:: To decrease pain, To increase ROM, To improve nutrient delivery to tissue, To improve muscle performance and motor function, To increase tolerance to activity/condition/position and To improve ability of physical actions for home/community/work/leisure Manual Therapy Techniques to Include: Mobilization For the Purpose of:: To decrease pain and To improve nutrient delivery to tissue Cryotherapy (ice pack, ice massage): Yes Thermo therapy (hot pack): Yes Ultrasound (thermal/non thermal): Yes For the Purpose of:: To decrease pain, To decrease swelling/inflammation and To improve nutrient delivery to tissue Text: Thank you for the opportunity to evaluate your patient. For Medicare and Medicare HMO plans, please review the plan of care and approve it. It will need to be FAXED BACK to us at [phone] for Medicare purposes. For Medicare only, by signing this I certify the plan of care. Please let me know if there are questions or concerns regarding this plan of care. Physician Signature: Date:
--- NOTE | 2023-06-27 12:25 | HP.PTREVAL_ITS ---
Re-Evaluation Intro: JUAN LUIS GARCIA, It has been my pleasure to treat CRYSTAL PALMER over the last 7 visits for BICIPITAL TENDINITIS L SHLD. Please see the progress note below for an update on the physical therapy plan of care! Subjective Subjective: PATIENT REPORTS SHE CAN MOVE HER ARM AROUND WITH ALMOST NO PAIN NOW. STATES SHE IS ALMOST BACK TO HER NORMAL ACTIVITY LEVEL TOO. IT FEELS SO MUCH BETTER AFTER THE US TREATMENTS. Objective Objective/Function: PATIENT WAS SEEN TODAY FOR RE-ASSESSMENT OF PROGRESS TOWARD THE SET PT GOALS AND THE NEED FOR FURTHER PHYSICAL THERAPY VS READINESS FOR DISCHARGE. THIS PATIENT IS MAKING GOOD PROGRESS WITH PT AND IS A GOOD CANDIDATE TO CONTINUE BASED ON PROGRESS MADE AND ROOM FOR FURTHER IMPROVEMENT. SHE WOULD LIKE TO SEE IF SHE CAN GET RID OF THE REST OF THE PAIN AND GET STRONGER. UPON EXAM TODAY SHE STILL HAS WEAKNESS IN L SHLD FLEX, ABD AND ER BUT HER ELBOW FLEXION AND SHLD IR IS 5/5 NOW. Motor deficit: R HAND DOMINANT. CHASIDY GRIB 20 LBS. L SHLD FLEX 4/5, ABD 4/5, IR 5/5, ER 4/5, ELBOW FLEX 5/5, EXT 5/5. L [employer]UL[employer]IONS ASSOCIATE STRENGTH - 21 LBS. PATIENT DENIES INCREASED PAIN WITH L UE STRENGTH TESTING TODAY. Plan Plan Plan: CONTINUE PT 2X'S A WK X 3 WKS FOR L SHLD/SCAP STRENGTH AND STABILITY TRAINING WITH HEP INSTRUCTIONS. MH/CP NEEDED. Balance/Gait/Functional tests Balance/Special Test Scores Quick DASH Score: 13.6350 Goals Goals Goal 1:: DECREASE C/O L SHLD CATCHING/POPPING AND PAIN BY AT LEAST 80% Goal Time Frame: 2-4 Weeks Goal Progress: Goal Met Goal 2:: INCREASE L UE STRENGTH BY AT LEAST 1/2 MUSCLE GRADE OF ALL INVOLVED MUSCULATURE GOAL MET 06/27/23. NEW GOAL: INCREASE L UE STRENGTH BY AT LEAST 1/2 MUSCLE GRADE OF ALL INVOLVED MUSCULATURE. Goal Time Frame: 2-4 Weeks Goal Progress: Progressing Goal 3:: IMPROVE QUICK DASH SCORE BY AT LEAST 5 POINTS Goal Time Frame: 2-4 Weeks Goal Progress: Goal Met Goal 4:: INDEP HEP Goal Time Frame: 2-4 Weeks Goal Progress: Progressing Anticipated Interventions Anticipated Interventions Patient/Client Instruction: Educate patient on: Condition, Plan of Care and Risk Factors For the Purpose of:: To improve self management Therapeutic Exercise to Include: Strength training, Postural training, Neuromotor development, Passive ROM, Active ROM and Scapular Strength/Stabilization For the Purpose of:: To decrease pain, To increase ROM, To improve nutrient delivery to tissue, To improve muscle performance and motor function, To increase tolerance to activity/condition/position and To improve ability of physical actions for home/community/work/leisure Manual Therapy Techniques to Include: Mobilization For the Purpose of:: To decrease pain and To improve nutrient delivery to tissue Cryotherapy (ice pack, ice massage): Yes Thermo therapy (hot pack): Yes Ultrasound (thermal/non thermal): Yes For the Purpose of:: To decrease pain, To decrease swelling/inflammation and To improve nutrient delivery to tissue Re-Evaluation Ending Re-evaluation ending: Please do not hesitate to contact me at [phone] by phone or if you have questions or concerns regarding this new plan of care! Sincerely, Annmarie Mathis, PT, Cert MDT
--- NOTE | 2023-07-18 09:28 | HP.PTDCSUM_ITS ---
Discharge Summary D/C summary: It has been my pleasure to treat CRYSTAL PALMER referred by JUAN LUIS GARCIA, with the diagnosis of BICIPITAL TENDINITIS L SHLD for a total of 13 visit(s). Discharge Date: 07/18/23 Please see the following information for a summary of their discharge status. 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 I KNOW I NEED TO KEEP DOING MY EXERCISES. PATIENT REPORTS HER MAIN GOAL WAS TO GET HER L SHOULDER TO STOP POPPING AND SHE THINKS IT HAS ONLY POPPED ONCE IN THE LAST WEEK. Pain L SHLD: Pain Intensity (Out of 10): 1 Overall Improvement % Improvement: 95 Objective Objective/Function: PATIENT WAS SEEN TODAY FOR RE-ASSESSMENT OF PROGRESS TOWARD THE SET PT GOALS AND THE NEED FOR FURTHER PHYSICAL THERAPY VS READINESS FOR DISCHARGE. THIS PATIENT HAS RESPONDED WELL TO PT AND IS NOW INDEP WITH A HEP AND APPROPRIATE FOR DISCHARGE. UPON EXAM TODAY SHE STILL HAS WEAKNESS A LITTLE BIT OF WEAKNESS INTO FLEXION (4+/5) BUT OTHERWISE L SHLD STRENGTH IS 5/5 WITH MMT'ING. L SHLD ROM IS WFL. L FIELD PROPERTY LOSS SPECIALIST STRENGTH IS 22 LBS AND PATIENT DENIES PAIN AND POPPING WITH ALL TESTING TODAY. Goals Goal 1:: DECREASE C/O L SHLD CATCHING/POPPING AND PAIN BY AT LEAST 80% Goal Progress: Goal Met Goal 2:: INCREASE L UE STRENGTH BY AT LEAST 1/2 MUSCLE GRADE OF ALL INVOLVED MUSCULATURE GOAL MET 06/27/23. NEW GOAL: INCREASE L UE STRENGTH BY AT LEAST 1/2 MUSCLE GRADE OF ALL INVOLVED MUSCULATURE. Goal Progress: Goal Met Goal 3:: IMPROVE QUICK DASH SCORE BY AT LEAST 5 POINTS Goal Progress: Goal Met Goal 4:: INDEP HEP Goal Progress: Goal Met Plan Plan: D/C D/C Information d/c sentence: If there are questions or concerns regarding this patient's physical therapy, please feel free to call me at [phone]. Thank you for the referral of this patient. Sincerely, Annmarie Mathis, PT, Cert MDT Balance/Gait/Functional tests Balance/Special Test Scores Quick DASH Score: 4.5450 Improvement % Improvement: 95
== END 2023-07-16 19:00 | disposition home or self-care (01) ==
LOC: PT 15:00
PROVIDERS: PCP Family Medicine
DX: M75.22 Bicipital tendinitis, left shoulder (principal)
CPT/HCPCS: 97035; 97110; 97162; 97530